=== PATIENT | male | born 1980 | race Caucasian/White ===

== ENCOUNTER 2021-03-23 03:57 | Inpatient (IN) | payer OTHER ==
[2021-03-23] MEDS ORDERED: PANTOPRAZOLE 40 MG/10 ML VIAL IVP STA (04:11)
[2021-03-23] MEDS ORDERED: MORPHINE SULFATE 4 MG/ML SYRINGE IV STA (04:11)
[2021-03-23] MEDS ORDERED: SODIUM CHLORIDE 0.9% 1,000 ML IV STA ×2 (04:11)
[2021-03-23] MEDS ORDERED: ONDANSETRON 4 MG/2 ML VIAL IVP STA (04:11)
[2021-03-23] MEDS ORDERED: SODIUM CHLORIDE 0.9% 500 ML 500 ML IV STA (04:11)
--- NOTE | 2021-03-23 04:11 | ED ---
Abdominal Pain HPI - General Chief Complaint: Abdominal Pain Stated Complaint: poss kidney stone Time Seen by Provider: 03/23/21 04:01 Source: patient, RN notes reviewed, old records reviewed Mode of arrival: ambulatory Limitations: no limitations - History of Present Illness Initial Comments: This is a 40-year-old male DF for evaluation patient complains of severe severe abdominal pain suprapubic abdominal pain severe with diaphoresis. Patient feels like he probably has kidney stone this is concern for flank pain as well as positive nausea and sudden onset of the severe pain. Patient has no prior history of kidney stones. Otherwise no fevers cough or congestion of travel history. No symptomatically therapy at home. MD Complaint: abdominal pain, flank pain -: hour(s) Location: suprapubic Radiation: epigastric Migration to: R flank, bilateral flank Severity: severe Severity scale (1-10): 10 Quality: stabbing, sharp Consistency: constant Improves With: nothing Worsens With: nothing Context: other (none) Associated Symptoms: nausea, vomiting Treatments Prior to Arrival: other (nonre) - Related Data Home Medications Medication Instructions Recorded Confirmed Dextroamphetamine Sulfate 30 mg PO DAILY 04/23/16 03/23/21 [Dexedrine] lisinopriL [Zestril] 5 mg PO DAILY 03/23/21 03/23/21 Previous Rx's Medication Instructions Recorded Ciprofloxacin HCl [Cipro] 250 mg PO BID 10 Days #20 tab 03/24/21 metroNIDAZOLE [Flagyl] 500 mg PO BID #20 tab 03/24/21 Allergies Allergy/AdvReac Type Severity Reaction Status Date / Time aspirin Allergy Dyspnea Verified 03/23/21 12:46 latex Allergy Rash/Hives Verified 03/23/21 12:46 Review of Systems ROS Statement: Those systems with pertinent positive or pertinent negative responses have been documented in the HPI. ROS Other: All systems not noted in ROS Statement are negative. Past Medical History Past Medical History: Asthma, GI Bleed Additional Past Medical History / Comment(s): hx diverticulitis, constipation, hx broken neck History of Any Multi-Drug Resistant Organisms: None Reported Past Surgical History: Cholecystectomy Past Anesthesia/Blood Transfusion Reactions: No Reported Reaction Past Psychological History: ADD/ADHD Smoking Status: Former smoker Past Alcohol Use History: None Reported Past Drug Use History: Marijuana - Past Family History Mother Family Medical History: No Reported History General Exam Limitations: no limitations General appearance: alert, in no apparent distress Head exam: Present: atraumatic, normocephalic, normal inspection Eye exam: Present: normal appearance, PERRL, EOMI. Absent: scleral icterus, conjunctival injection, periorbital swelling ENT exam: Present: normal exam, mucous membranes dry, mucous membranes moist Neck exam: Present: normal inspection. Absent: tenderness, meningismus, lymphadenopathy Respiratory exam: Present: normal lung sounds bilaterally. Absent: respiratory distress, wheezes, rales, rhonchi, stridor Cardiovascular Exam: Present: normal rhythm, tachycardia, normal heart sounds. Absent: systolic murmur, diastolic murmur, rubs, gallop, clicks GI/Abdominal exam: Present: soft, distended, tenderness, rebound, normal bowel sounds. Absent: guarding, rigid Extremities exam: Present: normal inspection, full ROM, normal capillary refill. Absent: tenderness, pedal edema, joint swelling, calf tenderness Back exam: Present: normal inspection Neurological exam: Present: alert, oriented X3, CN II-XII intact Psychiatric exam: Present: normal affect, normal mood Skin exam: Present: warm, dry, intact, normal color. Absent: rash Course Vital Signs 03/23/21 04:00 Temperature 98.1 F Pulse Rate 114 H Respiratory 20 Rate Blood Pressure 125/75 O2 Sat by Pulse 97 Oximetry - Reevaluation(s) Reevaluation #1: 04/08/21 04:43Medical record is reviewed Symptoms improved here significantly in the emergency room Patient informed results and questions answered Patient does not feel comfortable with discharge secondary to pain Medical Decision Making - Medical Decision Making 40 male DF with thinks he may have kidney stone the pain is severe. Patient does have diverticulitis with only hospital admission for evaluation and management - Lab Data Result diagrams: 03/23/21 16:06 03/23/21 12:01 Lab Results 03/23/21 03/23/21 Range/Units 04:33 04:33 WBC 9.7 (3.8-10.6) k/uL RBC 5.05 (4.30-5.90) m/uL Hgb 15.6 (13.0-17.5) gm/dL Hct 44.6 (39.0-53.0) % MCV 88.3 (80.0-100.0) fL MCH 31.0 (25.0-35.0) pg MCHC 35.1 (31.0-37.0) g/dL RDW 12.7 (11.5-15.5) % Plt Count 278 (150-450) k/uL MPV 7.1 Neutrophils % 81 % Lymphocytes % 8 % Monocytes % 7 % Eosinophils % 2 % Basophils % 0 % Neutrophils # 7.9 H (1.3-7.7) k/uL Lymphocytes # 0.8 L (1.0-4.8) k/uL Monocytes # 0.7 (0-1.0) k/uL Eosinophils # 0.2 (0-0.7) k/uL Basophils # 0.0 (0-0.2) k/uL Sodium 140 (137-145) mmol/L Potassium 3.5 (3.5-5.1) mmol/L Chloride 105 (98-107) mmol/L Carbon Dioxide 23 (22-30) mmol/L Anion Gap 12 mmol/L BUN 9 (9-20) mg/dL Creatinine 0.89 (0.66-1.25) mg/dL Est GFR (CKD-EPI)AfAm >90 (>60 ml/min/1.73 sqM) Est GFR (CKD-EPI)NonAf >90 (>60 ml/min/1.73 sqM) Glucose 146 H (74-99) mg/dL Calcium 9.3 (8.4-10.2) mg/dL Total Bilirubin 0.6 (0.2-1.3) mg/dL AST 24 (17-59) U/L ALT 34 (4-49) U/L Alkaline Phosphatase 85 (38-126) U/L Total Protein 7.0 (6.3-8.2) g/dL Albumin 4.3 (3.5-5.0) g/dL Amylase 33 (30-110) U/L Lipase 53 (23-300) U/L - Radiology Data Radiology results: report reviewed (CT head and pelvis positive for diverticulitis), image reviewed Disposition Clinical Impression: Abdominal pain, Diverticulitis Disposition: ADMITTED IP TO THIS [facility] Condition: Good Is patient prescribed a controlled substance at d/c from ED?: No
[2021-03-23] MEDS ORDERED: KETOROLAC 15 MG/ML 1 ML VIAL ONE (04:37)
[2021-03-23] MEDS ORDERED: KETOROLAC 15 MG/ML 1 ML VIAL IVP STA (04:43)
[2021-03-23 04:50] LABS: Basophils % (A) 0 %; Eosinophils # (A) 0.2 k/uL (0-0.7); Eosinophils % (A) 2 %; HCT 44.6 % (39.0-53.0); HGB 15.6 gm/dL (13.0-17.5); Lymphocytes # (A) 0.8 k/uL (1.0-4.8); Lymphocytes % (A) 8 %; MCHC 35.1 g/dL (31.0-37.0); MCV 88.3 fL (80.0-100.0); Mean Platelet Volume 7.1; Monocytes # (A) 0.7 k/uL (0-1.0); Monocytes % (A) 7 %; Neutrophils # (A) 7.9 k/uL (1.3-7.7); Neutrophils % (A) 81 %; Platelet Count 278 k/uL (150-450); RBC 5.05 m/uL (4.30-5.90); RDW 12.7 % (11.5-15.5); WBC 9.7 k/uL (3.8-10.6)
[2021-03-23 05:05] LABS: ALT 34 U/L (4-49); AST 24 U/L (17-59); African American GFR (CKD) >90 (>60 ml/min/1.73 sqM); Albumin 4.3 g/dL (3.5-5.0); Alkaline Phosphatase 85 U/L (38-126); Amylase 33 U/L (30-110); Anion Gap 12 mmol/L; Blood Urea Nitrogen 9 mg/dL (9-20); Calcium 9.3 mg/dL (8.4-10.2); Carbon Dioxide 23 mmol/L (22-30); Chloride 105 mmol/L (98-107); Glucose 146 mg/dL (74-99); Lipase 53 U/L (23-300); Non-African American GFR(CKD) >90 (>60 ml/min/1.73 sqM); Potassium 3.5 mmol/L (3.5-5.1); Sodium 140 mmol/L (137-145); Total Bilirubin 0.6 mg/dL (0.2-1.3)
--- NOTE | 2021-03-23 05:35 | CT ---
EXAM: CT Abdomen and Pelvis Without Intravenous Contrast CLINICAL HISTORY: ITS.REASON CT Reason: abdominal pain TECHNIQUE: Axial computed tomography images of the abdomen and pelvis without intravenous contrast. CTDI is 12.57 mGy and DLP is 747.2 mGy-cm. This CT exam was performed using one or more of the following dose reduction techniques: automated exposure control, adjustment of the mA and/or kV according to patient size, and/or use of iterative reconstruction technique. COMPARISON: No relevant prior studies available. FINDINGS: Lung bases: Linear atelectasis or scarring in the right lower lung. ABDOMEN: Liver: Mild fatty infiltration of the liver and hepatomegaly with the liver measuring 19 cm craniocaudad. Gallbladder and bile ducts: Previous cholecystectomy. No biliary duct dilation is seen. Pancreas: Unremarkable. No ductal dilation. Spleen: The spleen is slightly enlarged measuring 15.2 cm craniocaudad. Adrenals: Unremarkable. No mass. Kidneys and ureters: Unremarkable. No obstructing stones. No hydronephrosis. Stomach and bowel: Acute inflammatory process in the pelvis around the sigmoid colon consistent with acute diverticulitis. A cluster of gas bubbles outside of the bowel lumen suggests developing but poorly defined diverticular abscess. No obstruction. PELVIS: Appendix: No findings to suggest acute appendicitis. Bladder: Unremarkable. No stones. Reproductive: Unremarkable as visualized. ABDOMEN and PELVIS: Intraperitoneal space: Unremarkable. No free air. No significant fluid collection. Bones/joints: No acute fracture. No dislocation. Soft tissues: Unremarkable. Vasculature: Unremarkable. No abdominal aortic aneurysm. Lymph nodes: Unremarkable. No enlarged lymph nodes. IMPRESSION: Acute inflammatory process in the pelvis around the sigmoid colon consistent with acute diverticulitis. A cluster of gas bubbles outside of the bowel lumen suggests developing but poorly defined diverticular abscess.
[2021-03-23] MEDS ORDERED: NALOXONE 0.4 MG/ML 1 ML VIAL IV PRN (05:37)
[2021-03-23] MEDS ORDERED: ONDANSETRON 4 MG/2 ML VIAL IVP PRN (05:37)
[2021-03-23] MEDS ORDERED: AMPICILLIN-SULBACTAM 3 GM in SODIUM CHLORIDE 0.9% 100 ML IVPB STA (05:37)
[2021-03-23] MEDS ORDERED: MORPHINE SULFATE 4 MG/ML SYRINGE IV PRN (05:37)
[2021-03-23] MEDS: SODIUM CHLORIDE 0.9% 1,000 ML IV SCH ×3 (06:21→22:23)
[2021-03-23 07:41] LABS: Appearance,Urine Clear (Clear); Bilirubin,Urine Negative (Negative); Blood,Urine Negative (Negative); Color,Urine Yellow; Glucose,Urine (UA) Negative (Negative); Ketones,Urine Negative (Negative); Leukocyte Esterase,Urine Negative (Negative); Nitrite,Urine Negative (Negative); Protein,Urine Negative (Negative); Specific Gravity,Urine 1.014 (1.001-1.035); Urobilinogen,Urine <2.0 mg/dL (<2.0)
[2021-03-23] MEDS: PANTOPRAZOLE 40 MG/10 ML VIAL IV SCH (08:31)
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
[2021-03-23] MEDS ORDERED: KETOROLAC 15 MG/ML 1 ML VIAL IVP SCH (12:00)
[2021-03-23 12:27] LABS: Basophils % (A) 0 %; Eosinophils # (A) 0.2 k/uL (0-0.7); Eosinophils % (A) 2 %; HCT 40.8 % (39.0-53.0); Lymphocytes # (A) 0.5 k/uL (1.0-4.8); Lymphocytes % (A) 6 %; MCH 30.2 pg (25.0-35.0); MCHC 34.2 g/dL (31.0-37.0); MCV 88.3 fL (80.0-100.0); Mean Platelet Volume 6.6; Monocytes # (A) 0.6 k/uL (0-1.0); Monocytes % (A) 8 %; Neutrophils # (A) 6.5 k/uL (1.3-7.7); Neutrophils % (A) 82 %; Platelet Count 210 k/uL (150-450); RBC 4.61 m/uL (4.30-5.90); RDW 12.7 % (11.5-15.5); WBC 7.9 k/uL (3.8-10.6)
[2021-03-23 12:43] LABS: ALT 31 U/L (4-49); AST 20 U/L (17-59); African American GFR (CKD) >90 (>60 ml/min/1.73 sqM); Albumin 3.4 g/dL (3.5-5.0); Albumin/Globulin Ratio 1.4; Alkaline Phosphatase 69 U/L (38-126); Anion Gap 6 mmol/L; Blood Urea Nitrogen 8 mg/dL (9-20); Calcium 8.5 mg/dL (8.4-10.2); Carbon Dioxide 25 mmol/L (22-30); Chloride 108 mmol/L (98-107); Globulin 2.5 g/dL; Glucose 112 mg/dL (74-99); Non-African American GFR(CKD) >90 (>60 ml/min/1.73 sqM); Potassium 3.7 mmol/L (3.5-5.1); Sodium 139 mmol/L (137-145); Total Bilirubin 0.4 mg/dL (0.2-1.3); Total Protein 5.9 g/dL (6.3-8.2)
[2021-03-23] MEDS: metroNIDAZOLE-NS PMX 500 MG in SALINE 1 100ML.BAG IVPB SCH ×2 (13:11→19:37)
[2021-03-23] MEDS: AMPICILLIN-SULBACTAM 3 GM in SODIUM CHLORIDE 0.9% 100 ML IVPB SCH ×2 (14:21→21:55)
[2021-03-23] MEDS: KETOROLAC 15 MG/ML 1 ML VIAL IVP PRN ×2 (14:53→23:38)
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
[2021-03-23 16:19] LABS: HCT 43.5 % (39.0-53.0); HGB 14.7 gm/dL (13.0-17.5); MCH 30.4 pg (25.0-35.0); MCHC 33.9 g/dL (31.0-37.0); MCV 89.7 fL (80.0-100.0); Mean Platelet Volume 6.7; Platelet Count 236 k/uL (150-450); RBC 4.85 m/uL (4.30-5.90); RDW 12.8 % (11.5-15.5); WBC 9.2 k/uL (3.8-10.6)
[2021-03-23 16:54] LABS: Appearance,Urine Clear (Clear); Bilirubin,Urine Negative (Negative); Blood,Urine Negative (Negative); Color,Urine Yellow; Glucose,Urine (UA) Negative (Negative); Ketones,Urine Trace (Negative); Leukocyte Esterase,Urine Negative (Negative); Nitrite,Urine Negative (Negative); PH, Urine 6.5 (5.0-8.0); Protein,Urine Trace (Negative); Specific Gravity,Urine 1.028 (1.001-1.035); Urobilinogen,Urine <2.0 mg/dL (<2.0)
[2021-03-23] MEDS ORDERED: ACETAMINOPHEN TAB 325 MG TAB PO PRN (19:29)
[2021-03-24] MEDS: metroNIDAZOLE-NS PMX 500 MG in SALINE 1 100ML.BAG IVPB SCH ×3 (03:36→19:38)
[2021-03-24] MEDS: AMPICILLIN-SULBACTAM 3 GM in SODIUM CHLORIDE 0.9% 100 ML IVPB SCH ×3 (05:13→21:00)
[2021-03-24] MEDS: PANTOPRAZOLE 40 MG/10 ML VIAL IV SCH (09:00)
[2021-03-24] MEDS: KETOROLAC 15 MG/ML 1 ML VIAL IVP PRN (09:54)
--- NOTE | 2021-03-24 11:07 | P.PN ---
Subjective Progress Note Date: 03/24/21 Pateint doing well pain is improved, WBC last night was normal. No F/C, passing gas no NV Objective - Vital Signs Vital signs: Vital Signs Temp 99.8 F H 03/24/21 08:00 Pulse 100 03/24/21 08:00 Resp 16 03/24/21 08:00 BP 130/77 03/24/21 08:00 Pulse Ox 93 L 03/24/21 08:00 Intake & Output 03/23/21 03/24/21 03/24/21 18:59 06:59 18:59 Weight 99.79 kg Other: Voiding Method Toilet # Voids 1 3 - Constitutional General appearance: Present: cooperative - Cardiovascular Rhythm: regular - Gastrointestinal Gastrointestinal Comment(s): S/NT/ND - Labs CBC & Chem 7: 03/23/21 16:06 03/23/21 12:01 Labs: Abnormal Lab Results - Last 24 Hours (Table) 03/23/21 03/23/21 03/23/21 Range/Units 12:01 12:01 16:45 Lymphocytes # 0.5 L (1.0-4.8) k/uL Chloride 108 H (98-107) mmol/L BUN 8 L (9-20) mg/dL Glucose 112 H (74-99) mg/dL Total Protein 5.9 L (6.3-8.2) g/dL Albumin 3.4 L (3.5-5.0) g/dL Urine Protein Trace H (Negative) Urine Ketones Trace H (Negative) Assessment and Plan Assessment: Acute complicated diverticulitis Plan: Patient does seem to be improving, he was non tended to palpation today on physical exam and denies abdominal pain. He can trial a soft diet today, if he tolerates this and continues to improve likely he can be discharged home on oral antibiotics with follow up in office in 6-8 weeks to schedule a colonoscopy.
[2021-03-24] MEDS: SODIUM CHLORIDE 0.9% 1,000 ML IV SCH ×2 (11:36→19:38)
--- NOTE | 2021-03-24 11:51 | P.PN ---
Subjective Progress Note Date: 03/24/21 Principal diagnosis: Abdominal pain, known history of diverticulosis current diagnosis diverticulitis Patient seemingly had an uneventful night, multiple abdominal pain is improved tolerating diet will continue to follow closely and anticipate discharge home tomorrow continue IV Flagyl and Unasyn Objective - Vital Signs Vital signs: Vital Signs Temp 99.8 F H 03/24/21 08:00 Pulse 100 03/24/21 08:00 Resp 16 03/24/21 08:00 BP 130/77 03/24/21 08:00 Pulse Ox 93 L 03/24/21 08:00 Intake & Output 03/23/21 03/24/21 03/24/21 18:59 06:59 18:59 Weight 99.79 kg Other: Voiding Method Toilet # Voids 1 3 - Exam General: [Patient awake, alert and oriented times 3. Patient in no acute distress.] HEENT: [PERRL. EOMI. No pharyngeal erythema or exudate.] Neck: [No adenopathy.] Cardiac: [Heart regular in rate and rhythm. No S3. No S4. No clicks, rubs. No murmur.] Lungs: [Clear to auscultation bilaterally.] Abdomen: [No mass. No organomegaly. Bowel sounds presnt and normoactive in all 4 quadrants. Mild diffuse tenderness at this time Extremes: [No edema no cyanosis no claudication normal pulses] : Normal male genitalia Musculoskeletal: [No joint erythema, edema or tenderness.] Skin: [No rash.] Neurologic: [No lateralizing deficits. CN II - XII grossly intact.] Lymphatic: [No adenopathy.] - Labs CBC & Chem 7: 03/23/21 16:06 03/23/21 12:01 Labs: Abnormal Lab Results - Last 24 Hours (Table) 03/23/21 03/23/21 03/23/21 Range/Units 12:01 12:01 16:45 Lymphocytes # 0.5 L (1.0-4.8) k/uL Chloride 108 H (98-107) mmol/L BUN 8 L (9-20) mg/dL Glucose 112 H (74-99) mg/dL Total Protein 5.9 L (6.3-8.2) g/dL Albumin 3.4 L (3.5-5.0) g/dL Urine Protein Trace H (Negative) Urine Ketones Trace H (Negative) Assessment and Plan (1) Abdominal pain Current Visit: Yes Status: Acute Code(s): R10.9 - UNSPECIFIED ABDOMINAL PAIN SNOMED Code(s): 43955427 (2) Diverticulitis Current Visit: Yes Status: Acute Code(s): K57.92 - DVTRCLI OF INTEST, PART UNSP, W/O PERF OR ABSCESS W/O BLEED SNOMED Code(s): 563721425 Plan: Patient admitted for abdominal pain Acute diverticulitis with free air appearing outside the lumen of the bowel IV antibiotics including Unasyn, and Flagyl was started Consultation with Dr. Alex jerry general surgeon evaluate and treat Repeat CBC comp and obtain blood culture Will continue to follow patient anticipate discharge home tomorrow on Flagyl 500mg twice daily for 10 days We'll also discharge patient home on Cipro 250 twice daily for 10 days, and Metamucil or some fiber product daily We will follow patient in office sometime next week Time with Patient: Greater than 30
--- NOTE | 2021-03-24 12:03 | P.DS ---
Providers Date of admission: 03/23/21 05:38 Attending physician: Destin Bradley Consults: 03/23/21 05:38 Consult Physician Routine Consulting Provider: Alex Randall Consult Reason/Comments: known Do you want consulting provider notified?: Yes Primary care physician: Destin Bradley - Discharge Diagnosis(es) (1) Abdominal pain Current Visit: Yes Status: Acute (2) Diverticulitis Current Visit: Yes Status: Acute Hospital Course: Patient was admitted with diverticulitis demonstrating evidence of free air outside the lumen of the large bowel Patient has progressed nicely on IV antibiotics and bowel rest Anticipate discharge home tomorrow morning Patient Condition at Discharge: Good Plan - Discharge Summary Discharge Rx Participant: No New Discharge Prescriptions: New metroNIDAZOLE [Flagyl] 500 mg PO BID #20 tab Ciprofloxacin HCl [Cipro] 250 mg PO BID 10 Days #20 tab No Action Dextroamphetamine Sulfate [Dexedrine] 30 mg PO DAILY lisinopriL [Zestril] 5 mg PO DAILY Discharge Medication List Dextroamphetamine Sulfate [Dexedrine] 30 mg PO DAILY 04/23/16 [History] lisinopriL [Zestril] 5 mg PO DAILY 03/23/21 [History] Ciprofloxacin HCl [Cipro] 250 mg PO BID 10 Days #20 tab 03/24/21 [Rx] metroNIDAZOLE [Flagyl] 500 mg PO BID #20 tab 03/24/21 [Rx] Follow up Appointment(s)/Referral(s): Destin Bradley Jr, [Primary Care Provider] - 1-2 days Discharge Disposition: HOME SELF-CARE Care Plan Goals (MU): May discharge home barring any unusual circumstances or adverse change in progress tomorrow morning as of 9:00 We wished for patient to get IV antibiotics for 24 hours
[2021-03-24 19:28] VITALS: RESP 16
[2021-03-25] MEDS: metroNIDAZOLE-NS PMX 500 MG in SALINE 1 100ML.BAG IVPB SCH (03:10)
[2021-03-25] MEDS: AMPICILLIN-SULBACTAM 3 GM in SODIUM CHLORIDE 0.9% 100 ML IVPB SCH (05:42)
[2021-03-25] MEDS: SODIUM CHLORIDE 0.9% 1,000 ML IV SCH (05:42)
[2021-03-25 06:09] VITALS: BP 125/72; PULSE 86; TEMP 98.8
[2021-03-25] MEDS ORDERED: PANTOPRAZOLE 40 MG TABLET PO SCH (09:00)
== END 2021-03-25 09:21 | disposition home or self-care (01) | DRG 392 ==
LOC: EC 03:57 → 4SSUR 05:38
PROVIDERS: ADMIT Family Medicine; ATTEND Family Medicine
DX: K57.32 Diverticulitis of large intestine without perforation or abscess without bleeding (principal); J45.909 Unspecified asthma, uncomplicated; Z20.822 Contact with and (suspected) exposure to COVID-19; I10 Essential (primary) hypertension; F90.9 Attention-deficit hyperactivity disorder, unspecified type; K59.00 Constipation, unspecified; Z90.49 Acquired absence of other specified parts of digestive tract; Z79.899 Other long term (current) drug therapy; Z87.19 Personal history of other diseases of the digestive system; Z87.891 Personal history of nicotine dependence; Z87.81 Personal history of (healed) traumatic fracture; Z98.890 Other specified postprocedural states; Z88.6 Allergy status to analgesic agent; Z91.040 Latex allergy status
CPT/HCPCS: 36415; 74176; 80053; 81003; 82150; 83690; 85025; 85027; 87040; 87635; 96361; 96374; 96375; 99285

== ENCOUNTER → 2023-08-10 | Outpatient (CLI) | payer BC ==
[2023-08-10 15:42] LABS: Basophils # (A) 0.02 X 10*3/uL (0.00-0.10); Basophils % (A) 0.5 %; Eosinophils # (A) 0.25 X 10*3/uL (0.04-0.35); Eosinophils % (A) 5.9 %; HCT 46.6 % (39.6-50.0); HGB 15.6 d/dL (13.0-17.0); Lymphocytes # (A) 0.93 X 10*3/uL (0.90-5.00); MCH 30.9 pg (27.0-32.0); MCHC 33.5 d/dL (32.0-37.0); MCV 92.3 FL (80.0-97.0); Mean Platelet Volume 11.3 FL (9.5-12.2); Monocytes # (A) 0.37 X 10*3/uL (0.20-1.00); Monocytes % (A) 8.7 %; NRBC Per 100 WBC 0 X 10*3/uL (0.00-0.01); Neutrophils # (A) 2.65 X 10*3/uL (1.80-7.70); Neutrophils % (A) 62.7 %; Platelet Count 166 X 10*3/uL (140-440); RBC 5.05 X 10*6/uL (4.40-5.60); RDW 12.8 % (11.5-14.5); WBC 4.23 X 10*3/uL (4.50-10.00)
[2023-08-10 15:59] LABS: Anion Gap 11.4 mmol/L (4.00-12.00); Carbon Dioxide 25.6 mmol/L (21.6-31.8); Potassium 4.2 mmol/L (3.5-5.5)
== END | disposition home or self-care (01) ==
LOC: LABWHC1 08:38
PROVIDERS: ATTEND Surgery
DX: Z01.818 Encounter for other preprocedural examination (principal); K57.32 Diverticulitis of large intestine without perforation or abscess without bleeding
CPT/HCPCS: 80051; 85025; 86850; 86900; 86901; 93005

== ENCOUNTER 2023-08-13 08:54 | Day surgery (SDC) | payer BC ==
[2023-08-07 12:39] VITALS: BMI 28.4
[~2023-08-13 08:54] MED LIST: LACTATED RINGERS 1,000 ML IV SCH; LIDOCAINE 1% (10MG/ML) FOR IV START INTRADERMA PRN
[2023-08-13 09:17] VITALS: TEMP 97.7
[2023-08-13] MEDS ORDERED: LACTATED RINGERS 1,000 ML IV ONE (09:17)
[2023-08-13] MEDS ORDERED: PROPOFOL 10 MG/ML 20 ML VIAL IV ONE (09:56)
--- NOTE | 2023-08-13 10:01 | P.GSHP ---
History of Present Illness H&P Date: 08/13/23 Chief Complaint: History of diverticulitis This is a 43-year-old male with previous history of perforated diverticulitis. Patient presents today for colonoscopy. He'll be undergoing reversal colostomy tomorrow. Past Medical History Past Medical History: Asthma, GI Bleed, Hearing Disorder / Deafness, Hypertension, Skin Disorder Additional Past Medical History / Comment(s): Colostomy. Intermittent palpitati ons, thinks due to anxiety, Dr Bradley aware. Hx diverticulitis, constipation. Hx broken neck, C5-C6. Hx migraines when younger. Hx Eczema. Hard of hearing right ear. History of Any Multi-Drug Resistant Organisms: None Reported Past Surgical History: Bowel Resection, Cholecystectomy Additional Past Surgical History / Comment(s): [place] teeth extracted. Past Anesthesia/Blood Transfusion Reactions: No Reported Reaction Past Psychological History: ADD/ADHD Smoking Status: Former smoker Past Alcohol Use History: None Reported Additional Past Alcohol Use History / Comment(s): Quit smoking Dec 17, smoked 20 years off and on, 1ppd. Past Drug Use History: Marijuana Additional Drug Use History / Comment(s): Medical Marijuana-daily PRN, aware no use 24 hrs prior to procedure. - Past Family History Mother Family Medical History: No Reported History Medications and Allergies Home Medications Medication Instructions Recorded Confirmed Type Dextroamphetamine Sulfate 15 - 30 mg PO DAILY PRN 08/07/23 08/07/23 History [Dexedrine] Ipratropium/Albuter 20-100Mcg 1 puff INHALATION DIRECTED PRN 08/07/23 08/07/23 History [Combivent Respimat 20-100Mcg Inhaler] Magnesium (Unknown Dose) 1 tab PO DAILY 08/07/23 08/07/23 History Melatonin (Unknown Dose) 1 tab PO HS 08/07/23 08/07/23 History Multivitamin [Multivitamins Adult 1 each PO DAILY 08/07/23 08/07/23 History Gummies] Tiotropium 2.5 Mcg/Puff [Spiriva 2 puff INHALATION DAILY PRN 08/07/23 08/07/23 History Respimat 2.5 Mcg] lisinopriL 2.5 mg PO QAM 08/07/23 08/07/23 History Allergies Allergy/AdvReac Type Severity Reaction Status Date / Time aspirin Allergy Dyspnea Verified 08/07/23 11:59 latex Allergy Rash/Hives Verified 08/07/23 11:59 Surgical - Exam Vital Signs Temp Pulse Resp BP Pulse Ox 97.7 F 81 18 123/86 98 08/13/23 09:15 08/13/23 09:15 08/13/23 09:15 08/13/23 09:15 08/13/23 09:15 - General well developed, well nourished, no distress - Eyes PERRL - ENT normal pinna - Neck no masses - Respiratory normal expansion - Cardiovascular Rhythm: regular - Abdomen Colostomy left lower quadrant Abdomen: soft, non tender Assessment and Plan Assessment: History of diverticulitis. We'll perform colonoscopy.
--- NOTE | 2023-08-13 10:12 | P.OP ---
Date of Procedure: 08/13/23 Preoperative Diagnosis: History of perforated diverticulitis Postoperative Diagnosis: Diverticulosis Procedure(s) Performed: Colonoscopy Anesthesia: MAC Surgeon: Efrain Nicole Pathology: none sent Condition: stable Disposition: PACU Description of Procedure: Patient's placed on the endoscopy table in the lateral position. He received IV sedation. Digital rectal exam was performed. This revealed no ebonized. The colonoscope was placed the rectal stump. The stump measured prostate 10 cm length. There is no unsteady inflammatory changes the rectal stump. At this point the scope was withdrawn. The colonoscope was then placed the patient's colostomy. He was placed through the entire colon. The right colon appeared normal. In the transverse colon was a few scattered diverticulosis. In the descending colon there is more diverticula seen. There is no evidence of diverticulitis. The scope was then withdrawn.
[2023-08-13 10:45] VITALS: BP 116/77; PULSE 69; RESP 14
== END 2023-08-13 11:00 | disposition home or self-care (01) ==
LOC: ORWHC2ENDO 08:54
PROVIDERS: ATTEND Surgery
DX: K57.30 Diverticulosis of large intestine without perforation or abscess without bleeding (principal); J45.909 Unspecified asthma, uncomplicated; I10 Essential (primary) hypertension; F41.9 Anxiety disorder, unspecified; Z93.3 Colostomy status; Z90.49 Acquired absence of other specified parts of digestive tract; F17.210 Nicotine dependence, cigarettes, uncomplicated; Z79.51 Long term (current) use of inhaled steroids; Z79.899 Other long term (current) drug therapy; Z91.040 Latex allergy status
CPT/HCPCS: 44388; J2704; 44389

== ENCOUNTER 2023-08-14 05:34 | Inpatient (IN) | payer BC ==
[2023-08-07 13:03] VITALS: BMI 28.4
[~2023-08-14 05:34] MED LIST changes: +ACETAMINOPHEN TAB 500 MG TAB PO PRN; +HEPARIN SODIUM,PORCINE/PF 5,000 UNIT/0.5 ML SYRINGE SQ PRN; -LACTATED RINGERS 1,000 ML IV SCH; -LIDOCAINE 1% (10MG/ML) FOR IV START INTRADERMA PRN; +metroNIDAZOLE-NS PMX 500 MG in SALINE 1 100ML.BAG IVPB PRN
[2023-08-14] MEDS ORDERED: SCOPOLAMINE 1 MG/72 HR PATCH TRANSDERM ONE ×2 (05:48→22:15)
[2023-08-14] MEDS ORDERED: ONDANSETRON 4 MG/2 ML VIAL IVP ONE (05:48)
[2023-08-14] MEDS ORDERED: DEXAMETHASONE SOD PHOSPHATE 4 MG/ML 1 ML VIAL IV ONE (05:48)
[2023-08-14] MEDS ORDERED: LIDOCAINE 1% (10MG/ML) FOR IV START INTRADERMA PRN (05:48)
[2023-08-14] MEDS: LACTATED RINGERS 1,000 ML IV SCH (06:15)
[2023-08-14] MEDS ORDERED: fentaNYL (PF) 50 MCG/ML 2 ML AMP IVP ONE (06:45)
[2023-08-14] MEDS ORDERED: MIDAZOLAM 2 MG/2 ML VIAL IVP ONE (06:45)
[2023-08-14] MEDS ORDERED: HYDROmorphone 0.5 MG/0.5 ML SYRINGE IVP PRN (07:00)
[2023-08-14] MEDS ORDERED: droPERidol 5 MG/2 ML VIAL IVP PRN (07:00)
[2023-08-14] MEDS ORDERED: ROCURONIUM 10 MG/ML (5 ML VIAL) IV ONE (07:03)
[2023-08-14] MEDS ORDERED: HEPARIN SODIUM,PORCINE 5,000 UNIT/ML 1 ML VIAL ONE (07:03)
[2023-08-14] MEDS ORDERED: NEOSTIGMINE 1 MG/ML 10 ML VIAL ONE (07:03)
[2023-08-14] MEDS ORDERED: fentaNYL (PF) 50 MCG/ML 2 ML AMP ONE (07:03)
[2023-08-14] MEDS ORDERED: GLYCOPYRROLATE 0.2 MG/ML 2 ML VIAL ONE (07:03)
[2023-08-14] MEDS ORDERED: KETAMINE HCL IN 0.9 % NACL 50 MG/5 ML SYRINGE ONE (07:03)
[2023-08-14] MEDS ORDERED: LIDOCAINE 1% INJ 10MG/ML (20 ML MDV) ONE (07:03)
[2023-08-14] MEDS ORDERED: MIDAZOLAM 2 MG/2 ML VIAL ONE (07:03)
[2023-08-14] MEDS ORDERED: PROPOFOL 10 MG/ML 20 ML VIAL IV ONE (07:03)
[2023-08-14] MEDS ORDERED: HYDROmorphone (PF) 1 MG/ML ONE (07:03)
[2023-08-14] MEDS ORDERED: NALBUPHINE 10 MG/ML (10 ML MDV) IV PRN (07:19)
[2023-08-14] MEDS ORDERED: ONDANSETRON 4 MG/2 ML VIAL IVP PRN ×2 (07:19→09:01)
[2023-08-14] MEDS ORDERED: NALOXONE 0.4 MG/ML 1 ML VIAL IV PRN ×2 (07:19→20:12)
--- NOTE | 2023-08-14 07:29 | P.ANPRN ---
Procedure Note - Anesthesia - Epidural/Spinal Epidural Continuous Date of Procedure: 08/14/23 Procedure Start Time: 06:45 Procedure Stop Time: 06:55 Location of Patient: PreOp Indication: Acute Post-Operative Pain, Requested by Surgeon (Dr Nicole) Sedation Type: Sedate with meaningful contact maintained Preparation: Sterile Dressing Position: Sitting Catheter Depth at Skin (cm): 12 Needle Guage: 18 Blood Aspirated: No Pain Paresthesia on Injection Noted: No Events: Other (see comment) (Negative test dose)
[2023-08-14] MEDS ORDERED: LACTATED RINGERS 1,000 ML IV ONE (07:51)
[2023-08-14] MEDS ORDERED: METOCLOPRAMIDE 5 MG/ML 2 ML VIAL IVP PRN (09:01)
--- NOTE | 2023-08-14 09:01 | P.OP ---
Date of Procedure: 08/14/23 Preoperative Diagnosis: History of perforated diverticulitis Postoperative Diagnosis: History of perforated diverticulitis Incisional hernia Parastomal hernia Adhesions Procedure(s) Performed: Exploratory laparotomy Reversal of colostomy Lysis of adhesions Repair of incisional hernia Repair of parastomal hernia Anesthesia: SAMARIA Surgeon: Efrain Nicole Estimated Blood Loss (ml): 75 Pathology: other (colon) Condition: stable Disposition: PACU Description of Procedure: The patient's placed on the operative table in the supine position. He received general endotracheal tube anesthesia. His abdomen was prepped and draped in usual sterile fashion after he is placed in dorsal 5 position. The skin was incised in the midline scar. There was a hernia located near the umbilicus. The hernia measured approximately 5 cm diameter. Using left cautery the abdominal wall was dissected. And then the peritoneal cavity is entered. There were adhesions. Approximately 20 minutes of operative time used to lyse adhesions. The colostomy was visualized. The colon was then transected next the fascia using RENA stapler. At this point the small bowel was dissected free out of the pelvis. And then the rectal stump was visualized. There was a 3-0 Prolene suture in the rectal stump. Next there was an adequate length of colon to reach the pelvis. An opening was made at the staple line and then the 29 mm EEA stapler anvil was placed in the colon. And then the distal colon was closed with a GI stapler. The spike for the a.m. was then driven through the staple line. At this point the clinical research assistant placed the anal dilator anus and into the rectal stump. The EEA stapler was then placed into the rectal stump. The staple anvil was positioned through the rectal staple line. The anvil was then connected to the stapler. Staple and closed and then fired. 2 intact donuts of tissue removed from the stapler. Next using a bowel clamp the proximal bowel was occluded and then the rectal stump was insufflated with air. There is no evidence of stress position of staple line. This point the abdomen was irrigated. The fascia at the colostomy site was then closed using #1 Lance fix suture. There was a parastomal hernia noticed. The midline was then closed using looped PDS #1 suture. 2 sutures used to close the incision. Skin was closed juana. The colostomy then removed using electrocautery. And then the anterior fascia was reapproximate using 0 Vicryl suture. The skin was closed juana. The prevena l was placed over top of the the staple line. Sterile dressing applied. Patient top she will was sent to recovery room stable condition.
[2023-08-14] MEDS: ROPIVACAINE 250 MG, HYDROMORPHONE (PF) 5 MG in SODIUM CHLORIDE 0.9% 200 ML EPIDURAL PRN ×5 (09:13→17:22)
[2023-08-14] MEDS ORDERED: MEPERIDINE 50 MG/ML SYRINGE IVP ONE (09:18)
[2023-08-14] MEDS: D5-0.45% NACL WITH KCL 20MEQ/L 1,000 ML IV SCH ×2 (11:13→19:34)
[2023-08-14] MEDS ORDERED: IPRATROPIUM-ALBUTEROL 3 ML NEB INHALATION PRN (12:37)
[2023-08-14] MEDS ORDERED: PANTOPRAZOLE 40 MG/10 ML VIAL IVP SCH (13:00)
--- NOTE | 2023-08-14 14:37 | P.CONS ---
History of Present Illness - Reason for Consult Consult date: 08/14/23 Medical management hypertension ,asthma Requesting physician: Efrain Nicole - Chief Complaint Status post exploratory lap, reversal of colostomy, repair of incisional he - History of Present Illness This is a 43-year-old gentleman with past medical history significant for sepsis secondary to acute diverticulitis with possible perforation, possible abscess, E. coli bacteremia, sigmoid colectomy with end colostomy, GI bleed, hearing disorder, asthma, prior nicotine dependence, daily marijuana use, obesity, BMI 31, ADD/ADHD, C5-C6 injury, migraines and multiple other medical issues status post exploratory lap, reversal of colostomy, repair of incisional hernia. Tolerated procedure well. Recently returned to the floor from postop. Maintaining O2 sats in the 90s on 3 L nasal cannula. Pain controlled, on epidural. Continues on IV fluid hydration. Denies nausea, vomiting. Denies chest pain, palpitations or shortness of breath. Review of Systems ROS Statement: Those systems with pertinent positive or pertinent negative responses have been documented in the HPI. ROS Other: All systems not noted in ROS Statement are negative. Past Medical History Past Medical History: Asthma, GI Bleed, Hearing Disorder / Deafness, Hypertension, Skin Disorder Additional Past Medical History / Comment(s): Colostomy. Intermittent palpitations, thinks due to anxiety, Dr Bradley aware. Hx diverticulitis, constipation. Hx broken neck, C5-C6. Hx migraines when younger. Hx Eczema. Hard of hearing right ear. History of Any Multi-Drug Resistant Organisms: None Reported Past Surgical History: Bowel Resection, Cholecystectomy Additional Past Surgical History / Comment(s): [place] teeth extracted. Past Anesthesia/Blood Transfusion Reactions: No Reported Reaction Past Psychological History: ADD/ADHD Smoking Status: Former smoker Past Alcohol Use History: None Reported Additional Past Alcohol Use History / Comment(s): Quit smoking Dec 17, smoked 20 years off and on, 1ppd. Past Drug Use History: Marijuana Additional Drug Use History / Comment(s): Medical Marijuana-daily PRN, aware no use 24 hrs prior to procedure. - Past Family History Mother Family Medical History: No Reported History Medications and Allergies Home Medications Medication Instructions Recorded Confirmed Type Dextroamphetamine Sulfate 15 - 30 mg PO DAILY PRN 08/07/23 08/07/23 History [Dexedrine] Ipratropium/Albuter 20-100Mcg 1 puff INHALATION DIRECTED PRN 08/07/23 08/07/23 History [Combivent Respimat 20-100Mcg Inhaler] Magnesium (Unknown Dose) 1 tab PO DAILY 08/07/23 08/07/23 History Melatonin (Unknown Dose) 1 tab PO HS 08/07/23 08/07/23 History Multivitamin [Multivitamins Adult 1 each PO DAILY 08/07/23 08/07/23 History Gummies] Tiotropium 2.5 Mcg/Puff [Spiriva 2 puff INHALATION DAILY PRN 08/07/23 08/07/23 History Respimat 2.5 Mcg] lisinopriL 2.5 mg PO QAM 08/07/23 08/07/23 History Allergies Allergy/AdvReac Type Severity Reaction Status Date / Time aspirin Allergy Dyspnea Verified 08/07/23 11:59 latex Allergy Rash/Hives Verified 08/07/23 11:59 Physical Exam Vitals: Vital Signs Temp Pulse Pulse Resp BP BP Pulse Ox 08/14/23 13:03 97.9 F 70 17 115/72 98 08/14/23 10:25 59 L 16 110/60 95 08/14/23 10:10 56 L 16 128/72 99 08/14/23 09:55 59 L 16 134/78 99 08/14/23 09:40 60 16 149/71 99 08/14/23 09:25 67 16 146/89 99 08/14/23 09:10 98 F 83 16 140/77 100 08/14/23 06:10 97.4 F L 71 16 111/63 95 Intake and Output 08/13/23 08/14/23 08/14/23 22:59 06:59 14:59 Intake Total 300 1668 Output Total 275 Balance 300 1393 Intake: IV 300 1668 Output: Urine 200 Estimated Blood Loss 75 Other: Weight 96.8 kg General: [Patient awake, alert and oriented times 3, no acute distress, drowsy. HEENT: [Atraumatic, normocephalic PERRL. EOMI. Neck: [Supple, no JVD .] Cardiac: [Heart regular in rate and rhythm. No S3. No S4. No clicks, rubs. No murmur.] Lungs: [Clear to auscultation bilaterally.] Abdomen: [status post surgery, binder Extremes: [No edema no cyanosis no claudication normal pulses] Skin: [Warm and dry, No rash.] Neurologic: [CN II - XII grossly intact.] Assessment and Plan Assessment: Status post exploratory laparotomy, reversal of colostomy, lysis of adhesions, repair of incisional and parastomal hernia, in a patient with history of perforated diverticulitis, sigmoid colectomy with end colostomy. Morbid obesity, BMI 31 Chronic asthma, stable Daily marijuana use Former nicotine dependence Hypertension Hearing disorder ADD, ADHD And multiple other medical issues Plan: Continue on current medication regime ,monitoring and symptomatic treatment. IV fluids/pain management/DVT prophylaxis, diet advancement as per primary. Aggressive pulmonary toileting and nebulized bronchodilators, Symbicort ordered. Incentive spirometer ordered. The impression and plan of care has been dictated as directed. : I performed a history and examination of this patient, discussed the same with the dictator. I agree with the dictator's note ,documented as a scribe. Any additional findings or plans will be noted.
[2023-08-14] MEDS: SYMBICORT 80-4.5 MCG INHALER INHALATION SCH ×2 (15:06→19:07)
[2023-08-14] MEDS: IPRATROPIUM-ALBUTEROL 3 ML NEB INHALATION SCH ×2 (15:36→19:07)
[2023-08-14] MEDS: HEPARIN SODIUM,PORCINE 5,000 UNIT/ML 1 ML VIAL SQ SCH (16:43)
[2023-08-14 17:01] LABS: Basophils % (A) 0 %; Eosinophils % (A) 0 %; HCT 42.6 % (39.0-53.0); HGB 14.5 gm/dL (13.0-17.5); Lymphocytes # (A) 0.3 k/uL (1.0-4.8); Lymphocytes % (A) 3 %; MCHC 34.1 g/dL (31.0-37.0); MCV 93.8 fL (80.0-100.0); Mean Platelet Volume 8.1; Monocytes # (A) 0.4 k/uL (0-1.0); Monocytes % (A) 4 %; Neutrophils # (A) 9.1 k/uL (1.3-7.7); Neutrophils % (A) 92 %; Platelet Count 184 k/uL (150-450); RBC 4.54 m/uL (4.30-5.90); RDW 13.3 % (11.5-15.5); WBC 9.9 k/uL (3.8-10.6)
[2023-08-14 17:03] LABS: Glucose,Whole Blood 161 mg/dL (70-110)
[2023-08-14 17:08] LABS: African American GFR (CKD) >90 (>60 ml/min/1.73 sqM); Anion Gap 7 mmol/L; Blood Urea Nitrogen 10 mg/dL (9-20); Calcium 8.4 mg/dL (8.4-10.2); Carbon Dioxide 24 mmol/L (22-30); Chloride 105 mmol/L (98-107); Glucose 174 mg/dL (74-99); Non-African American GFR(CKD) >90 (>60 ml/min/1.73 sqM); Potassium 4.9 mmol/L (3.5-5.1); Sodium 136 mmol/L (137-145)
[2023-08-14] MEDS ORDERED: ROPIVACAINE 250 MG, fentaNYL (PF) 625 MCG in SODIUM CHLORIDE 0.9% 188 ML EPIDURAL PRN (20:30)
[2023-08-14] MEDS ORDERED: SODIUM CHLORIDE 0.9% 1,000 ML IV ONE (22:09)
[2023-08-14] MEDS ORDERED: PROCHLORPERAZINE INJ 10 MG/2 ML VIAL IVP PRN (22:11)
[2023-08-14] MEDS: KETOROLAC 15 MG/ML 1 ML VIAL IVP SCH (22:25)
[2023-08-14] MEDS: ACETAMINOPHEN IV (For NPO) 1,000 MG in EMPTY BAG 1 BAG IVPB SCH (22:27)
[2023-08-15] MEDS: HEPARIN SODIUM,PORCINE 5,000 UNIT/ML 1 ML VIAL SQ SCH ×3 (01:03→16:32)
[2023-08-15] MEDS: ONDANSETRON 4 MG/2 ML VIAL IVP SCH ×4 (01:03→18:06)
[2023-08-15] MEDS: KETOROLAC 15 MG/ML 1 ML VIAL IVP SCH ×4 (01:04→18:05)
[2023-08-15] MEDS: D5-0.45% NACL WITH KCL 20MEQ/L 1,000 ML IV SCH ×3 (03:08→20:40)
[2023-08-15] MEDS: ACETAMINOPHEN IV (For NPO) 1,000 MG in EMPTY BAG 1 BAG IVPB SCH ×3 (05:09→17:12)
[2023-08-15] MEDS: LACTATED RINGERS 1,000 ML IV SCH (05:16)
[2023-08-15] MEDS: PANTOPRAZOLE 40 MG/10 ML VIAL IVP SCH (05:34)
[2023-08-15] MEDS ORDERED: ALVIMOPAN 12 MG CAPSULE PO SCH (09:00)
--- NOTE | 2023-08-15 09:02 | P.PN ---
Progress Note - Text Progress Note Date: 08/15/23 Postoperative day # 1 status post explaretory laparotomy, colostomy reversal, epidural catheter placed for postoperative analgesia, patient doing well epidural site okay, patient started on combination of epidural infusion solution of Ropivacaine 0.0625% and Dilaudid 20 g per mL, she was on 6 mL per hour infusion, he had side effects which was decreased to 3 mL per hour patient continued to feel nauseated, and later on the epidural was on hold, she currently on IV Toradol and IV Tylenol as per surgery, patient reports that he does not want to take any opioid, (concerned about side effects and addiction ), patient for further epidural catheter to be removed Assessment and plan= post operative day #1 patient doing well , patient had side effect the epidural medication, he had concern about opioid side effects and concerned about addiction from the narcotics. He preferred to avoid all narcotics , epidural catheter discontinue further management as per surgical team
[2023-08-15] MEDS: IPRATROPIUM-ALBUTEROL 3 ML NEB INHALATION SCH ×4 (09:07→21:10)
[2023-08-15] MEDS: SYMBICORT 80-4.5 MCG INHALER INHALATION SCH ×2 (09:07→21:11)
[2023-08-15] MEDS: SIMETHICONE 40 MG/0.6 ML DROPS 2,000 MG/30 ML BOTTLE PO SCH ×4 (09:31→20:42)
--- NOTE | 2023-08-15 11:31 | P.PN ---
Subjective Progress Note Date: 08/15/23 CHIEF COMPLAINT: Diverticulitis HISTORY OF PRESENT ILLNESS: The patient is a 43-year-old male with div erticulitis who had a colostomy now reversed. Pain is poorly controlled with epidural due to severe nausea. He reports nausea is resolved. No flatus. ROS: No bowel movements. No fevers or chills. No new chest pain. No productive sputum PHYSICAL EXAM: VITAL SIGNS: Reviewed CONSTITUTIONAL: Well developed and in no acute distress. EYES: Conjuctivae without sclera icterus. Extraocular movements grossly intact. HEAD, EARS, NOSE, THROAT: Moist buccal mucosa. Head is atraumatic, normocepha lic. Hears conversational speech. No nasal drainage. RESPIRATORY: Non-labored respirations and equal bilateral excursions. CARDIOVASCULAR: Palpable 2+ radial pulses. ABDOMEN: Dressing intact. MUSCULOSKELETAL: No gross deformity of the lower extremities noted. No clubbing. No cyanosis. SKIN: Good skin turgor. Well perfused. NEUROLOGIC: Cranial nerves II through XII grossly intact. No focal or lateralizing signs. PSYCH: Appropriate affect. Alert and oriented to person, place and time. CLINICAL LABS: Reviewed. Hemoglobin 14.5 on admission ASSESSMENT: 1. Diverticulitis 2. Ostomy status status post reversal PLAN: 1. Adjust pain medication to nonnarcotic management 2. Low fiber diet. Objective - Vital Signs Vital signs: Vital Signs Temp 98.3 F 08/15/23 07:02 Pulse 80 08/15/23 09:22 Resp 16 08/15/23 07:02 BP 120/73 08/15/23 07:02 Pulse Ox 95 08/15/23 07:02 FiO2 Intake & Output 08/14/23 08/15/23 08/15/23 18:59 06:59 18:59 Intake Total 1716.8 Output Total 675 1000 Balance 1041.8 -1000 Weight 96.8 kg Intake: IV 1668 Intake, IV Titration 48.8 Amount Ropivacaine 250 mg 48.8 Hydromorphone (Pf) 5 mg In Sodium Chloride 0.9% 200 ml @ Per Protocol EPIDURAL .Q0M PRN Rx#: [id number] Output: Urine 600 1000 Estimated Blood Loss 75 Other: Voiding Method Indwelling Catheter Toilet Urinal - Labs CBC & Chem 7: 08/14/23 16:08/14/23 16:23 Labs: Abnormal Lab Results - Last 24 Hours (Table) 08/14/23 08/14/23 08/14/23 Range/Units 16:23 16:23 17:02 Neutrophils # 9.1 H (1.3-7.7) k/uL Lymphocytes # 0.3 L (1.0-4.8) k/uL Sodium 136 L (137-145) mmol/L Glucose 174 H (74-99) mg/dL POC Glucose (mg/dL) 161 H (70-110) mg/dL
[2023-08-15] MEDS ORDERED: NON FORMULARY DRUG (Ipratropium/Albuter 20-100mcg 120 PUFF Each) INHALATION PRN (12:25)
[2023-08-15] MEDS ORDERED: NON FORMULARY DRUG (Tiotropium 2.5 Mcg/Puff 10 PUFF Each) INHALATION PRN (12:25)
--- NOTE | 2023-08-15 12:37 | P.PN ---
Subjective Progress Note Date: 08/15/23 Principal diagnosis: Status post perforated diverticulum with bowel resection and colostomy, patient is in today status post the anastomosis of bowel repair of ventral hernia and r emoval of ostomy site Patient is status post surgical ambulation day #2 complains of mild nausea in cisional pain, will provide patient with Marinol for the nausea will observe closely Objective - Vital Signs Vital signs: Vital Signs Temp 98.3 F 08/15/23 07:02 Pulse 80 08/15/23 09:22 Resp 16 08/15/23 07:02 BP 120/73 08/15/23 07:02 Pulse Ox 95 08/15/23 07:02 FiO2 Intake & Output 08/14/23 08/15/23 08/15/23 18:59 06:59 18:59 Intake Total 1716.8 Output Total 675 1000 Balance 1041.8 -1000 Weight 96.8 kg Intake: IV 1668 Intake, IV Titration 48.8 Amount Ropivacaine 250 mg 48.8 Hydromorphone (Pf) 5 mg In Sodium Chloride 0.9% 200 ml @ Per Protocol EPIDURAL .Q0M PRN Rx#: [id number] Output: Urine 600 1000 Estimated Blood Loss 75 Other: Voiding Method Indwelling Catheter Toilet Urinal - Exam General: [Patient awake, alert and oriented times 3. Patient in no acute distress.] HEENT: [PERRL. EOMI. No pharyngeal erythema or exudate.] Neck: [No adenopathy.] Cardiac: [Heart regular in rate and rhythm. No S3. No S4. No clicks, rubs. No murmur.] Lungs: [Clear to auscultation bilaterally.] Abdomen: [No mass. No organomegaly. Bowel sounds presnt and normoactive in all 4 quadrants. Dominant incision clean and dry Bowel sounds diminished but present Extremes: [No edema no cyanosis no claudication normal pulses] : Normal male genitalia Musculoskeletal: [No joint erythema, edema or tenderness.] Skin: [No rash.] Neurologic: [No lateralizing deficits. CN II - XII grossly intact.] Lymphatic: [No adenopathy.] - Labs CBC & Chem 7: 08/14/23 16:23 08/14/23 16:23 Labs: Abnormal Lab Results - Last 24 Hours (Table) 08/14/23 08/14/2308/14/23 Range/Units 16:23 16:23 17:02 Neutrophils # 9.1 H (1.3-7.7) k/uL Lymphocytes # 0.3 L (1.0-4.8) k/uL Sodium 136 L (137-145) mmol/L Glucose 174 H (74-99) mg/dL POC Glucose (mg/dL) 161 H (70-110) mg/dL Assessment and Plan (1) Abdominal pain Current Visit: No Status: Acute Code(s): R10.9 - UNSPECIFIED ABDOMINAL PAIN SNOMED Code(s): 15947337 (2) Diverticulitis Current Visit: No Status: Acute Code(s): K57.92 - DVTRCLI OF INTEST, PART UNSP, W/O PERF OR ABSCESS W/O BLEED SNOMED Code(s): 302481275 (3) Post-op pain Current Visit: No Status: Acute Code(s): G89.18 - OTHER ACUTE POSTPROCEDURAL PAIN SNOMED Code(s): 525734471 Plan: Postop day 2 Patient uncomfortable Tolerating clear liquid We'll start Marinol 2.5 mg twice a day for nausea Will continue to follow Time with Patient: Greater than 30
[2023-08-15] MEDS: droNABinol 2.5 MG CAP PO SCH ×2 (13:32→17:13)
[2023-08-15] MEDS ORDERED: HYDROcodone/APAP 5-325MG 1 EACH TAB PO ONE (21:00)
[2023-08-15] MEDS ORDERED: MELATONIN PO SCH (21:00)
[2023-08-16] MEDS: HEPARIN SODIUM,PORCINE 5,000 UNIT/ML 1 ML VIAL SQ SCH ×3 (00:03→22:05)
[2023-08-16] MEDS: KETOROLAC 15 MG/ML 1 ML VIAL IVP SCH (00:08)
[2023-08-16] MEDS: ONDANSETRON 4 MG/2 ML VIAL IVP SCH ×4 (00:08→17:05)
[2023-08-16] MEDS: D5-0.45% NACL WITH KCL 20MEQ/L 1,000 ML IV SCH ×4 (04:32→20:50)
[2023-08-16] MEDS: LACTATED RINGERS 1,000 ML IV SCH (04:33)
[2023-08-16] MEDS: droNABinol 2.5 MG CAP PO SCH (06:08)
[2023-08-16] MEDS: PANTOPRAZOLE 40 MG/10 ML VIAL IVP SCH (06:08)
[2023-08-16] MEDS: HYDROcodone/APAP 10-325MG 1 EACH TAB PO PRN ×3 (06:18→22:07)
[2023-08-16] MEDS: SIMETHICONE 40 MG/0.6 ML DROPS 2,000 MG/30 ML BOTTLE PO SCH ×5 (08:09→22:07)
[2023-08-16 09:05] LABS: HCT 35.2 % (39.6-50.0); HGB 11.6 d/dL (13.0-17.0); MCH 31.4 pg (27.0-32.0); MCV 95.4 FL (80.0-97.0); Mean Platelet Volume 11.1 FL (9.5-12.2); NRBC Per 100 WBC 0 X 10*3/uL (0.00-0.01); Platelet Count 158 X 10*3/uL (140-440); RBC 3.69 X 10*6/uL (4.40-5.60); WBC 5.23 X 10*3/uL (4.50-10.00)
[2023-08-16 09:16] LABS: Blood Urea Nitrogen 8.1 mg/dL (9.0-27.0); Calcium 8.4 mg/dL (8.7-10.3); Carbon Dioxide 25.2 mmol/L (21.6-31.8); Chloride 108 mmol/L (96-109); Glucose 107 mg/dL (70-110); Potassium 4.3 mmol/L (3.5-5.5); Sodium 141 mmol/L (135-145)
[2023-08-16] MEDS: SYMBICORT 80-4.5 MCG INHALER INHALATION SCH ×2 (09:50→21:41)
[2023-08-16] MEDS: IPRATROPIUM-ALBUTEROL 3 ML NEB INHALATION SCH ×4 (09:50→21:41)
--- NOTE | 2023-08-16 13:10 | P.PN ---
Subjective Progress Note Date: 08/16/23 CHIEF COMPLAINT: Diverticulitis HISTORY OF PRESENT ILLNESS: The patient is a 43-year-old male with div erticulitis who had a colostomy now reversed. He is having abdominal distention and bloody stools. He was placed on Marional and refusing. He started taking narcotics and now has ileus. No emesis. ROS: Has bowel movements with blood No fevers or chills. No new chest pain. No productive sputum PHYSICAL EXAM: VITAL SIGNS: Reviewed CONSTITUTIONAL: Well developed and in no acute distress. EYES: Conjuctivae without sclera icterus. Extraocular movements grossly intact. HEAD, EARS, NOSE, THROAT: Moist buccal mucosa. Head is atraumatic, normocephalic. Hears conversational speech. No nasal drainage. RESPIRATORY: Non-labored respirations and equal bilateral excursions. CARDIOVASCULAR: Palpable 2+ radial pulses. ABDOMEN: Dressing intact. MUSCULOSKELETAL: No gross deformity of the lower extremities noted. No clubbing. No cyanosis. SKIN: Good skin turgor. Well perfused. NEUROLOGIC: Cranial nerves II through XII grossly intact. No focal or lateralizing signs. PSYCH: Appropriate affect. Alert and oriented to person, place and time. CLINICAL LABS: Reviewed. Hemoglobin 14.5 on admission down to 11.6 ASSESSMENT: 1. Diverticulitis 2. Ostomy status status post reversal 3. Acute blood loss anemia, expected. 4. Ileus PLAN: 1. Toradol stopped for moderate bloody bowel movements. 2. Heparin decreased from Q8 to Q12 3. Discontinue Marinol as is contra-indicated in recent colon resection and interferes with Entereg 4. Limit narcotic use contributing to ileus 5. Increase simethicone from 80 to 100 mg scheduled 6. Ofirmev scheduled non-narcotic 7. Scheduled Reglan. 8. Downgrade diet to clear liquids Objective - Vital Signs Vital signs: Vital Signs Temp 98.1 F 08/16/23 06:47 Pulse 88 08/16/23 10:02 Resp 16 08/16/23 06:47 BP 128/77 08/16/23 06:47 Pulse Ox 94 L 08/16/23 06:47 FiO2 Intake & Output 08/15/23 08/16/23 08/16/23 18:59 06:59 18:59 Other: Voiding Method Toilet Toilet Toilet # Voids 2 3 # Bowel Movements 1 2 - Labs CBC & Chem 7: 08/16/23 05:26 08/16/23 05:26 Labs: Abnormal Lab Results - Last 24 Hours (Table) 08/16/23 08/16/23 Range/Units 05:26 05:26 RBC 3.69 L (4.40-5.60) X 10*6/uL Hgb 11.6 L (13.0-17.0) d/dL Hct 35.2 L (39.6-50.0) % BUN 8.1 L (9.0-27.0) mg/dL BUN/Creatinine Ratio 8.10 L (12.00-20.00) Ratio Calcium 8.4 L (8.7-10.3) mg/dL
[2023-08-16] MEDS: METOCLOPRAMIDE 5 MG/ML 2 ML VIAL IVP SCH ×2 (13:14→18:07)
[2023-08-16] MEDS: ACETAMINOPHEN IV (For NPO) 1,000 MG in EMPTY BAG 1 BAG IVPB SCH (17:05)
[2023-08-16] MEDS ORDERED: ALPRAZolam 0.25 MG TAB PO PRN (17:24)
[2023-08-17] MEDS: ACETAMINOPHEN IV (For NPO) 1,000 MG in EMPTY BAG 1 BAG IVPB SCH ×3 (00:13→12:24)
[2023-08-17] MEDS: ONDANSETRON 4 MG/2 ML VIAL IVP SCH ×4 (00:13→17:54)
[2023-08-17] MEDS: METOCLOPRAMIDE 5 MG/ML 2 ML VIAL IVP SCH ×4 (00:13→19:12)
[2023-08-17] MEDS: LACTATED RINGERS 1,000 ML IV SCH (01:20)
[2023-08-17] MEDS: PANTOPRAZOLE 40 MG/10 ML VIAL IVP SCH (05:55)
[2023-08-17] MEDS: SIMETHICONE 40 MG/0.6 ML DROPS 2,000 MG/30 ML BOTTLE PO SCH ×2 (09:03→12:27)
[2023-08-17] MEDS: HEPARIN SODIUM,PORCINE 5,000 UNIT/ML 1 ML VIAL SQ SCH ×2 (10:31→21:38)
[2023-08-17] MEDS: SYMBICORT 80-4.5 MCG INHALER INHALATION SCH ×2 (10:58→21:30)
[2023-08-17] MEDS: IPRATROPIUM-ALBUTEROL 3 ML NEB INHALATION SCH ×4 (10:58→21:30)
[2023-08-17 11:23] LABS: HCT 37.4 % (39.0-53.0); HGB 12.9 gm/dL (13.0-17.5); MCH 32.2 pg (25.0-35.0); MCHC 34.4 g/dL (31.0-37.0); MCV 93.5 fL (80.0-100.0); Mean Platelet Volume 7.4; Platelet Count 189 k/uL (150-450); RDW 13.1 % (11.5-15.5); WBC 4.8 k/uL (3.8-10.6)
[2023-08-17] MEDS: D5-0.45% NACL WITH KCL 20MEQ/L 1,000 ML IV SCH ×2 (13:47→21:32)
--- NOTE | 2023-08-17 15:57 | P.PN ---
Subjective Progress Note Date: 08/17/23 CHIEF COMPLAINT: History of perforated diverticulitis HISTORY OF PRESENT ILLNESS: Patient is postop day #3 status post exploratory laparotomy, reversal of colostomy, lysis of adhesions, repair of incisional hernia and repair of parastomal hernia. Patient having flatus and bloody stools. He does feel bloated. Reports minimal pain. Describes it is controlled. Denies any further nausea or vomiting. He has been up and ambulating. Afebrile. WBC 4.8 Hgb 12.9 and platelets 189 subcu heparin held this morning due to bloody stools. PHYSICAL EXAM: VITAL SIGNS: Reviewed. GENERAL: Well-developed in no acute distress. ABDOMEN: Soft. Nondistended. Minimal tenderness palpation of the incision. Prevana wound VAC intact NEUROLOGIC: Alert and oriented. Cranial nerves II through XII grossly intact. ASSESSMENT: 1. History of perforated Diverticulitis, incisional hernia, parastomal hernia and adhesions 2. Ostomy status status post reversal 3. Acute blood loss anemia, expected. 4. Ileus PLAN: -Advance diet to regular -Encouraged patient to ambulate -Encouraged patient to use incentive spirometer -Possible discharge tomorrow -Resume subcu heparin for DVT prophylaxis and GI prophylaxis Protonix Physician Snap Shearer note has been reviewed by physician. Signing provider agrees with the documented findings, assessment, and plan of care. Objective - Vital Signs Vital signs: Vital Signs Temp 98.5 F 08/17/23 07:00 Pulse 75 08/17/23 07:00 Resp 18 08/17/23 07:00 BP 149/80 08/17/23 07:00 Pulse Ox 96 08/17/23 07:00 FiO2 Intake & Output 08/16/23 08/17/23 08/17/23 18:59 06:59 18:59 Output Total 100 Balance -100 Output: Stool 100 Other: Voiding Method Toilet Toilet Toilet # Voids 3 3 # Bowel Movements 2 - Labs CBC & Chem 7: 08/17/23 11:10 08/16/23 05:26 Labs: Abnormal Lab Results - Last 24 Hours (Table) 08/17/23 Range/Units 11:10 RBC 4.00 L (4.30-5.90) m/uL Hgb 12.9 L (13.0-17.5) gm/dL Hct 37.4 L (39.0-53.0) %
--- NOTE | 2023-08-17 16:37 | P.PN ---
Subjective Progress Note Date: 08/16/23 Principal diagnosis: Status post perforated diverticulum with bowel resection and colostomy, status post the anastomosis of bowel repair of ventral hernia and removal of ostomy si te, postop day 4 Patient is status post op day 4, complains of mild nausea incisional pain Objective - Vital Signs Vital signs: Vital Signs Temp 98.5 F 08/17/23 07:00 Pulse 75 08/17/23 07:00 Resp 18 08/17/23 07:00 BP 149/80 08/17/23 07:00 Pulse Ox 96 08/17/23 07:00 FiO2 Intake & Output 08/16/23 08/17/23 08/17/23 18:59 06:59 18:59 Output Total 100 Balance -100 Output: Stool 100 Other: Voiding Method Toilet Toilet Toilet # Voids 3 3 # Bowel Movements 2 - Exam General: [Patient awake, alert and oriented times 3. Patient in no acute distress.] HEENT: [PERRL. EOMI. No pharyngeal erythema or exudate.] Neck: [No adenopathy.] Cardiac: [Heart regular in rate and rhythm. No S3. No S4. No clicks, rubs. No murmur.] Lungs: [Clear to auscultation bilaterally.] Abdomen: [No mass. No organomegaly. Bowel sounds presnt and normoactive in all 4 quadrants. Dominant incision clean and dry Bowel sounds diminished but present Extremes: [No edema no cyanosis no claudication normal pulses] : Normal male genitalia Musculoskeletal: [No joint erythema, edema or tenderness.] Skin: [No rash.] Neurologic: [No lateralizing deficits. CN II - XII grossly intact.] Lymphatic: [No adenopathy.] - Labs CBC & Chem 7: 08/17/23 11:10 08/16/23 05:26 Labs: Abnormal Lab Results - Last 24 Hours (Table) 08/17/23 Range/Units 11:10 RBC 4.00 L (4.30-5.90) m/uL Hgb 12.9 L (13.0-17.5) gm/dL Hct 37.4 L (39.0-53.0) % Assessment and Plan (1) Abdominal pain Current Visit: No Status: Acute Code(s): R10.9 - UNSPECIFIED ABDOMINAL PAIN SNOMED Code(s): 39928575 (2) Diverticulitis Current Visit: No Status: Acute Code(s): K57.92 - DVTRCLI OF INTEST, PART UNSP, W/O PERF OR ABSCESS W/O BLEED SNOMED Code(s): 997319733 (3) Post-op pain Current Visit: No Status: Acute Code(s): G89.18 - OTHER ACUTE POSTPROCEDURAL PAIN SNOMED Code(s): 815095967 Plan: Postop day 4 Mild incisional pain Diet slowly advancing Patient has been up walking about Will continue to follow Time with Patient: Greater than 30
[2023-08-17] MEDS: SIMETHICONE 80 MG CHEWABLE PO SCH ×3 (17:50→21:37)
[2023-08-17] MEDS: HYDROcodone/APAP 10-325MG 1 EACH TAB PO PRN (19:25)
[2023-08-18] MEDS: ONDANSETRON 4 MG/2 ML VIAL IVP SCH ×3 (00:03→14:27)
[2023-08-18] MEDS: METOCLOPRAMIDE 5 MG/ML 2 ML VIAL IVP SCH ×3 (00:16→14:40)
[2023-08-18] MEDS: HYDROcodone/APAP 10-325MG 1 EACH TAB PO PRN ×2 (00:17→06:50)
[2023-08-18] MEDS: D5-0.45% NACL WITH KCL 20MEQ/L 1,000 ML IV SCH ×2 (02:06→05:58)
[2023-08-18 02:11] VITALS: PULSE 76
[2023-08-18] MEDS: LACTATED RINGERS 1,000 ML IV SCH (05:40)
[2023-08-18] MEDS: PANTOPRAZOLE 40 MG/10 ML VIAL IVP SCH (05:45)
[2023-08-18 07:25] VITALS: BP 130/81; RESP 17; TEMP 98
[2023-08-18] MEDS: HEPARIN SODIUM,PORCINE 5,000 UNIT/ML 1 ML VIAL SQ SCH (09:30)
[2023-08-18] MEDS: SIMETHICONE 80 MG CHEWABLE PO SCH ×2 (09:30→14:32)
[2023-08-18] MEDS: SYMBICORT 80-4.5 MCG INHALER INHALATION SCH (09:56)
[2023-08-18] MEDS: IPRATROPIUM-ALBUTEROL 3 ML NEB INHALATION SCH ×2 (09:56→12:38)
--- NOTE | 2023-08-18 12:54 | P.DS ---
Providers Date of admission: 08/14/23 05:34 Expected date of discharge: 08/18/23 Attending physician: Efrain Nicole Consults: 08/14/23 09:01 Consult Physician Routine Consulting Provider: Destin Bradley Jr Consult Reason/Comments: Medical management Do you want consulting provider notified?: Yes Primary care physician: Destin Bradley [facility] Course: discharge diagnosis 1. History of perforated Diverticulitis, incisional hernia, parastomal hernia and adhesions 2. Ostomy status status post reversal 3. Acute blood loss anemia, expected. 4. [facility] course This is a 43-year-old male with history of perforated diverticulitis. He is status post exploratory laparotomy, reversal of colostomy, lysis of adhesions, repair of incisional hernia and repair of parastomal hernia. Patient's pain is controlled. He is tolerating diet. He is afebrile. He has been up and ambulating. He is having bowel movements. He is stable for discharge. Please refer to chart for any further details. Physician [facility] Manager note has been reviewed by physician. Signing provider agrees with the documented findings, assessment, and plan of care. Patient Condition at Discharge: Stable Plan - Discharge Summary Discharge Rx Participant: No New Discharge Prescriptions: New HYDROcodone/APAP 7.5-325MG [[place] 7.5-325] 1 tab PO Q6HR PRN 3 Days #12 tab PRN Reason: Pain Continue lisinopriL 2.5 mg PO QAM Ipratropium/Albuter 20-100Mcg [Combivent Respimat 20-100Mcg Inhaler] 1 puff INHALATION DIRECTED PRN PRN Reason: Shortness Of Breath Tiotropium 2.5 Mcg/Puff [Spiriva Respimat 2.5 Mcg] 2 puff INHALATION DAILY PRN PRN Reason: Shortness Of Breath Multivitamin [Multivitamins Adult Gummies] 1 each PO DAILY Melatonin (Unknown Dose) 1 tab PO HS Dextroamphetamine Sulfate [Dexedrine] 15 - 30 mg PO DAILY PRN PRN Reason: ADHD Magnesium (Unknown Dose) 1 tab PO DAILY Discharge Medication List Dextroamphetamine Sulfate [Dexedrine] 15 - 30 mg PO DAILY PRN 08/07/23 [History] Ipratropium/Albuter 20-100Mcg [Combivent Respimat 20-100Mcg Inhaler] 1 puff INHALATION DIRECTED PRN 08/07/23 [History] Magnesium (Unknown Dose) 1 tab PO DAILY 08/07/23 [History] Melatonin (Unknown Dose) 1 tab PO HS 08/07/23 [History] Multivitamin [Multivitamins Adult Gummies] 1 each PO DAILY 08/07/23 [History] Tiotropium 2.5 Mcg/Puff [Spiriva Respimat 2.5 Mcg] 2 puff INHALATION DAILY PRN 08/07/23 [History] lisinopriL 2.5 mg PO QAM 08/07/23 [History] HYDROcodone/APAP 7.5-325MG [[place] 7.5-325] 1 tab PO Q6HR PRN 3 Days #12 tab 08/18/23 [Rx] Follow up Appointment(s)/Referral(s): Destin Bradley Jr, [Primary Care Provider] - 1 Week (office closed at time of discharge. Please call to schedule appointment ) Efrain Nicole MD [STAFF PHYSICIAN] - 08/24/23 12:00 pm Activity/Diet/Wound Care/Special Instructions: No driving while taking [place] No lifting over 10 pounds Shower daily. No soaking or tub baths for 2 weeks Very light activity until you are reevaluated at your follow up appointment with your surgeon Discharge Disposition: HOME SELF-CARE
--- NOTE | 2023-08-18 13:58 | P.PN ---
Subjective Progress Note Date: 08/18/23 Patient is status post, anastomosis repair. He is postop day five. He's taller either diet and without complaint. He must likely go home later. Objective - Vital Signs Vital signs: Vital Signs Temp 98.0 F 08/18/23 07:23 Pulse 76 08/18/23 07:23 Resp 17 08/18/23 07:23 BP 130/81 08/18/23 07:23 Pulse Ox 93 L 08/18/23 07:23 FiO2 Intake & Output 08/17/23 08/18/23 08/18/23 18:59 06:59 18:59 Output Total 100 Balance -100 Output: Stool 100 Other: Voiding Method Toilet Toilet # Voids 3 2 - Exam General: Patient in no acute distress. Neck: No adenopathy Cardiac: Heart regular in rate and rhythm. No S3. No S4. No clicks, rubs. No murmur. Lungs: Clear to auscultation bilaterally Abdomen: wound vac in place over abdominal incision, Bowel sounds normal Extremes: No edema no cyanosis no claudication normal pulses Skin: No rash Neurologic: No lateralizing deficits. CN II - XII grossly intact - Labs CBC & Chem 7: 08/17/23 11:10 08/16/23 05:26 Assessment and Plan (1) H/O colostomy Current Visit: Yes Status: Acute Code(s): [id number] - SNOMED Code(s): 69201 7003 (2) Abdominal pain Current Visit: No Status: Acute Code(s): R10.9 - UNSPECIFIED ABDOMINAL PAIN SNOMED Code(s): 61059081 (3) Post-op pain Current Visit: No Status: Acute Code(s): G89.18 - OTHER ACUTE POSTPROCEDURAL PAIN SNOMED Code(s): 366552484 Plan: Patient is medically cleared for discharge, he can follow up in one and two weeks with Dr. Bradley or myself.
--- NOTE | 2023-08-20 11:10 | CDI ---
Documentation Clarification Form Date: 08/20/2023 10:22:47 AM From: Sharmin Plummer Admit Date: 08/14/2023 05:34:00 AM Patient Name: Sam Padilla Visit Number: [id number] Discharge Date: 08/18/2023 02:49:00 PM ATTENTION: The Clinical Documentation Specialists (CDI) and [facility] Coding Staff appreciate your assistance in clarifying documentation. Please respond to the clarification below the line at the bottom and electronically sign. The CDI & [facility] Coding staff will review the response and follow-up if needed. Please note: Queries are made part of the Legal Health Record. If you have any questions, please contact the author of this message via ITS. Dr. Efrain Nicole Approximately 20 minutes of operative time used to lyse adhesions is documented in the Operative Report 08/14/2023. Additional clarification regarding if adhesions were exensive or not. History/Risk factors: 20 minutes to lyse adhesions. Prior colectomy and colostomy for diverticulitis Pre-Operative Diagnosis: History of perforated diverticulitis Postoperative Diagnosis: History of perforated diverticulitis, incisional hernia, parastomal hernia and adhesions. Clinical Indicators: previous colectomy and colostomy Treatment: 20 minutes to lyse adhesions. Please clarify the following: [ xx ] Extensive lysis of adhesions [ ] Non extensive lysis of adhesions MTDD
== END 2023-08-18 14:49 | disposition home or self-care (01) | DRG 330 ==
LOC: 2ORMAIN 05:34 → 4SSUR 09:15
PROVIDERS: ADMIT Surgery; ATTEND Surgery
PROC: 0DQM0ZZ Repair Descending Colon, Open Approach (ICD-10-PCS; principal; 2023-08-14 07:00)
PROC: 0WQF0ZZ Repair Abdominal Wall, Open Approach (ICD-10-PCS; principal; 2023-08-14 07:00)
PROC: 0DNW0ZZ Release Peritoneum, Open Approach (ICD-10-PCS; principal; 2023-08-14 07:00)
DX: Z43.3 Encounter for attention to colostomy (principal); D62 Acute posthemorrhagic anemia; K56.7 Ileus, unspecified; K66.0 Peritoneal adhesions (postprocedural) (postinfection); K43.5 Parastomal hernia without obstruction or gangrene; K43.2 Incisional hernia without obstruction or gangrene; G89.18 Other acute postprocedural pain; H91.91 Unspecified hearing loss, right ear; I10 Essential (primary) hypertension; F41.9 Anxiety disorder, unspecified; E66.01 Morbid (severe) obesity due to excess calories; J45.909 Unspecified asthma, uncomplicated; Z68.31 Body mass index [BMI] 31.0-31.9, adult; F90.9 Attention-deficit hyperactivity disorder, unspecified type; G43.909 Migraine, unspecified, not intractable, without status migrainosus; Z87.891 Personal history of nicotine dependence; Z28.310 Unvaccinated for COVID-19; Z28.21 Immunization not carried out because of patient refusal; L30.9 Dermatitis, unspecified; K59.00 Constipation, unspecified; Z88.6 Allergy status to analgesic agent; Z91.040 Latex allergy status; Z79.82 Long term (current) use of aspirin; Z79.899 Other long term (current) drug therapy; Z90.49 Acquired absence of other specified parts of digestive tract
CPT/HCPCS: 80048; 85025; 85027; 88304; 88305; 94640